=== PATIENT | female | born 1940 ===

== ENCOUNTER 2021-04-14 12:49 | Outpatient (REF) | payer MEDICARE, MEDICAID, SELFPAY ==
--- NOTE | 2021-04-14 11:30 | PAPFT_PTH ---
PATIENT: Diane Penn LOC: [facility] U#:[id number] AGE/SX: 80/F ROOM: RE04/14/[address]: Soo Mendoza : 1940 BED: DIS: 04/14/2021 SPEC #: [id number] RECD: 04/14/21 13:06 STATUS: LIZA REBrown #: [id number] SHANA: 04/14/21 11:[address]: Soo Mendoza DEPT: [facility] Cytology RECD BY: Renetta Le Tissues: 1 - CX/ENDOCX FOR PAP SMEARS Procedures: PAP THIN PREP/UVM Screening Comments: [id number] (UNSATISFACTORY FOR EVALUATION)
== END 2021-04-14 12:50 | disposition home or self-care (01) ==
LOC: LBN 12:49
PROVIDERS: Visit Provider Obstetrics & Gynecology Gynecology
DX: Z12.4 Encounter for screening for malignant neoplasm of cervix (principal); R87.615 Unsatisfactory cytologic smear of cervix
CPT/HCPCS: 88142

== ENCOUNTER 2021-06-16 02:35 | Outpatient (CLI) | payer MEDICARE, MEDICAID, SELFPAY ==
--- NOTE | 2021-06-16 08:00 | DI.US_ITS ---
Exam(s) US PELVIS TRANSVAGINAL EXAM: US PELVIS TRANSVAGINAL CLINICAL HISTORY: postmenopausal bleeding,PROLAPSE,PESSARY MAINTENANCE,N81.2,Z46.89,N93.9 TECHNIQUE: Ultrasound performed using standard protocol. COMPARISON: No exams were available for comparison FINDINGS: Pelvic ultrasound was performed transabdominally and transvaginally. The ovaries were not visualized in this postmenopausal patient. Uterus measures 5.0 x 2.1 x 3.1 cm. There is fluid in the endometrial cavity which is abnormal in th is age group. Endometrial stripe is 1-2 millimeters in thickness and appears homogeneous. No free fluid in the cul-de-sac. Kidneys are unremarkable in appearance with no evidence of hydronephrosis or nephrolithiasis. IMPRESSION: Free fluid in the endometrial cavity, this is abnormal in this age group, endometrial tissue sampling should be considered to rule out neoplastic disease.. DATA REPOSITORY:
== END 2021-06-16 02:55 ==
PROVIDERS: Visit Provider Obstetrics & Gynecology Gynecology
DX: Z46.89 Encounter for fitting and adjustment of other specified devices (principal); N81.2 Incomplete uterovaginal prolapse; N93.9 Abnormal uterine and vaginal bleeding, unspecified
CPT/HCPCS: 76830; 76856

== ENCOUNTER 2024-07-04 08:08 | Outpatient (CLI) | payer MEDICARE, MEDICAID, SELFPAY | END 2024-07-04 08:09 | disposition home or self-care (01) | LOC: DI.CARD 08:09 | PROVIDERS: Visit Provider Internal Medicine Cardiovascular Disease | CPT/HCPCS: 93010 ==

== ENCOUNTER 2025-05-15 08:07 | Outpatient (CLI) | payer MEDICARE, MEDICAID, SELFPAY ==
--- NOTE | 2025-05-15 08:00 | RT.EKG_ITS ---
APPROVED REPORT Exam: Resting ECG Reason for Exam: afib Patient Location: O HR:78 bpm ECG Measurements Heart Rate 78 AXIS MT 192 P 62 QRSd 152 QRS 105 QT 407 T 85 QTc 464 Conclusion Atrial-ventricular dual-paced complexes...other complexes also detected No further analysis attempted due to paced rhythm
== END 2025-05-15 08:08 | disposition home or self-care (01) ==
LOC: DI.CARD 08:07
PROVIDERS: Visit Provider Student in an Organized Health Care Education/Training Program
DX: I48.20 Chronic atrial fibrillation, unspecified (principal); Z95.810 Presence of automatic (implantable) cardiac defibrillator
CPT/HCPCS: 93010

== ENCOUNTER → 2025-05-15 09:50 | Outpatient (BNVA) | payer MEDICARE, MEDICAID, SELFPAY | PROVIDERS: Visit Provider Student in an Organized Health Care Education/Training Program | DX: I48.20 Chronic atrial fibrillation, unspecified (principal); Z45.02 Encounter for adjustment and management of automatic implantable cardiac defibrillator | CPT/HCPCS: 93005; 93284 ==